=== PATIENT | male | born 1970 | race African-American/Black ===

== ENCOUNTER 2016-08-17 09:52 | Observation (INO) | payer MEDICAID ==
[2016-08-17 10:52] VITALS: BMI 25.4
[2016-08-17 11:04] LABS: AUTOMATED BASOPHIL 0.5 % (0-2); AUTOMATED EOSINOPHIL 0.6 % (0-5); AUTOMATED LYMPH 25.9 % (17-44); AUTOMATED MONOCYTE 8.2 % (3-10); AUTOMATED NEUTROPHIL 64.8 % (45-76); MPV 8.2 fL (7.4-10.4)
[2016-08-17 11:19] LABS: LEUKOCYTES/URINE NEG (NEGATIVE); NITRITE/URINE NEG (NEGATIVE); URINE OCCULT BLOOD NEG (NEG/TRACE)
[2016-08-17 11:20] LABS: ALL NEG? YES; MDMA* NEG (NEGATIVE); METHAMPHETAMINES NEG (NEGATIVE); OXYCODONE NEG (NEGATIVE)
[2016-08-17 11:34] LABS: BLOOD UREA NITROGEN 12 MG/DL (9-20); CALCIUM 9.3 MG/DL (8.4-10.2); CALCULATED OSMOLALITY 274 MOs/Kg (270-290); CHLORIDE 103 mEq/L (98-107); ETOH-MGDL < 10 mg/dL; GLUCOSE 72 MG/DL (70-99); SODIUM LEVEL 143 mEq/L (137-146); TOTAL PROTEIN 8.2 G/DL (6.3-8.2)
--- NOTE | 2016-08-17 11:47 | EDPRACDOC ---
- General Information Chief Complaint: Psychiatric Illness Stated Complaint: CONFUSED/ PSYCH EVAL Time Seen by Provider: 08/17/16 11:41 Information Source: Patient Allergies/Adverse Reactions: Allergies Allergy/AdvReac Type Severity Reaction Status Date / Time No Known Allergies Allergy Verified 08/17/16 10:49 - History of Present Illness Onset: 08/16/16 Exact Onset of Symptoms: Unknown HPI: Pt states he is not sure how he got here or what is going on. Pt states he can' t remember much. c/o sore throat, congestion, cough. Denies fever, headache, vision change, cp, sob, abd pain, n/v, changes in bowel or bladder, rash. Denies SI, HI. Pt states he hears voice but doesn't listen to them. Ex called. Pt hx schizoaffective disorder and has been of Haldol for 1 yr Symptoms began: Gradually Duration: Since Onset Symptoms Currently: Reports: Unchanged Altered Quality: Reports: Confusion Altered Severity: Reports: Mild, Moderate Recent Symptoms of: Reports: None Associated signs and symptoms: Denies: N, O, Chest pain, Headache, Seizure, Slurred speech, Weakness ED Past Medical History - History Reviewed Yes Nurses notes reviewed and agree except as marked - Patient Medical History Psychological History: Denies: Depression - Social Medical History Smoking Status: Heavy tobacco smoker (5 or more cigarettes/day or daily pipe/ cigar) ETOH: None Substance Abuse: None EDM Review of Systems - Review of Systems Constitutional: No Symptoms Reported. negative: Fever, Chills, Weakness, Fatigue, Loss of Appetite Eyes: No Symptoms Reported. negative: Redness, Blurred Vision, Double Vision, Discharge, Pain, Light Sensitive, Photophobia Ears: No Symptoms Reported. negative: Pain, Hearing Loss, Drainage, Ear Pulling Throat: Pain. negative: No Symptoms Reported, Swelling Nose: Congestion. negative: No Symptoms Reported, Abrasion, Bleeding, Discharge , Deformity, Ecchymosis, Injection, Laceration, Swelling, Tender Mouth: No Symptoms Reported. negative: Pain, Drooling Respiratory: Cough Cardiovascular: No Symptoms Reported. negative: Chest Pain, Palpitations, Syncope, Edema, Orthopnea, PND, Skin Mottling, Cyanosis Gastrointestinal: No Symptoms Reported. negative: Pain, Constipation, Nausea, Vomiting, Diarrhea, Melena, Formula Intolerance Genitourinary: No Symptoms Reported. negative: Dysuria, Hematuria, Frequency, Discharge, Bleeding, Testicular Pain, Neurological: Memory Changes. negative: No Symptoms Reported, Dizziness, Gait Difficulty, Headache, Numbness, Seizure, Speech Difficulty, Weakness Musculoskeletal: No Symptoms Reported. negative: Neck, Chestwall, Ribs, Back, Shoulder, Arm, Elbow, Forearm, Wrist, Hand, Pelvis, Hip, Femur, Knee, Leg, Ankle , Foot Integumentary: No Symptoms Reported. negative: Itching, Rash, Bruising, Wound Allergic/Immunologic: No Symptoms Reported. negative: Hives, Itching Hematologic: No Symptoms Reported. negative: Lymphadenopathy, Easy Bruising, Easy Bleeding Psychiatric: Hallucinations - Physical Exam Constitutional: Alert, Confused Oriented to: Person, Place Last recorded Vital Signs: Last Vital Signs Temp 98 F 08/17/16 10:52 Pulse 70 08/17/16 10:52 Resp 16 08/17/16 10:52 BP 128/59 L 08/17/16 10:52 Pulse Ox 100 08/17/16 10:52 Oxygen Pulse Oxygen Saturation 100 O2 Device Room Air Oxygen Flow Rate Fraction of Inspired Oxygen ( FIO2) - HEENT Head: Normal ( normocephalic) Eye Exam: Normal (PERRL, EOMI, Sclera white) Oropharynx: Red Tympanic Membrane: Normal ENT EAC: Normal TMJ: Normal Nose: No Symptoms Reported (septum midline) Neck: Normal (FROM, trachea at midline) - Respiratory/Cardiovascular Respiratory: Normal - CTA (BBS clear to auscultation without adventitious sounds ) Cardiovascular: Normal (RRR without murmur, gallop or rub) - GI Auscultation: Normal (NABS) Palpation: Normal (Soft,No rebound or guarding, non distended) Tenderness: Non tender - Musculoskeletal Back: Normal (Non-Tender) Extremities: Normal (Normal tone, Pulses 2+ No cyanosis or edema, FROM) - Integumentary Skin: Normal, Warm, Dry Lymphatics: Normal (no adenopathy) - Neurologic Memory Impaired: Short-term Motor Function: Normal (Normal tone, Pulses 2+ No cyanosis or edema, FROM) Cranial Nerve: Normal (CN II-X11 intact sensation, strength 5/5) Cerebellar: Normal Mood Description: Normal Thought: Coherent Perception: Normal - Differential Diagnosis Dehydration, Hypoglycemia, Closed Head Injury - Results 08/17/16 10:54 08/17/16 10:54 WBC 9.9 xk/uL (3.8-10.8) 08/17/16 10:54 RBC 5.38 xM/uL (4.70-6.10) 08/17/16 10:54 Hgb 14.7 g/dL (14.0-18.0) 08/17/16 10:54 Hct 45.2 % (42-52) 08/17/16 10:54 MCV 84 fL (80-94) 08/17/16 10:54 MCH 27.3 pg (27-32) 08/17/16 10:54 MCHC 32.5 g/dl (33-36) L 08/17/16 10:54 RDW 13.3 % (11.5-14.5) 08/17/16 10:54 Plt Count 175 xk/uL (130-400) 08/17/16 10:54 MPV 8.2 fL (7.4-10.4) 08/17/16 10:54 Neut % (Auto) 64.8 % (45-76) 08/17/16 10:54 Lymph % (Auto) 25.9 % (17-44) 08/17/16 10:54 Summers % (Auto) 8.2 % (3-10) 08/17/16 10:54 Eos % (Auto) 0.6 % (0-5) 08/17/16 10:54 Baso % (Auto) 0.5 % (0-2) 08/17/16 10:54 Absolute Neuts (auto) 6.34 xk/uL (1.7-8.2) 08/17/16 10:54 Absolute Lymphs (auto) 2.48 xk/uL (0.65-4.75) 08/17/16 10:54 Sodium 143 mEq/L (137-146) 08/17/16 10:54 Potassium 4.2 mEq/L (3.5-5.1) 08/17/16 10:54 Chloride 103 mEq/L (98-107) 08/17/16 10:54 Carbon Dioxide 23 mMOL/L (22-33) 08/17/16 10:54 Anion Gap 21 mEq/L (8-16) H 08/17/16 10:54 BUN 12 MG/DL (9-20) 08/17/16 10:54 Creatinine 0.70 MG/DL (0.66-1.25) 08/17/16 10:54 Estimated GFR (MDRD) > 60 mL/min (>=60) 08/17/16 10:54 Glucose 72 MG/DL (70-99) 08/17/16 10:54 Calculated Osmolality 274 MOs/Kg (270-290) 08/17/16 10:54 Calcium 9.3 MG/DL (8.4-10.2) 08/17/16 10:54 Total Bilirubin 0.8 MG/DL (0.2-1.3) 08/17/16 10:54 AST 39 IU/L (17-59) 08/17/16 10:54 ALT 30 IU/L (21-72) 08/17/16 10:54 Alkaline Phosphatase 59 IU/L (38-126) 08/17/16 10:54 Total Protein 8.2 G/DL (6.3-8.2) 08/17/16 10:54 Albumin 4.5 G/DL (3.5-5.0) 08/17/16 10:54 Urine Color Dark yellow 08/17/16 11:00 Urine Clarity Clear 08/17/16 11:00 Urine pH 6.0 (5.0-8.0) 08/17/16 11:00 Ur Specific [place] 1.030 (1.003-1.035) 08/17/16 11:00 Urine Protein 2+ (NEG/TRACE) H 08/17/16 11:00 Urine Glucose (UA) Neg (NEGATIVE) 08/17/16 11:00 Urine Ketones 2+ (NEGATIVE) H 08/17/16 11:00 Urine Occult Blood Neg (NEG/TRACE) 08/17/16 11:00 Urine Nitrite Neg (NEGATIVE) 08/17/16 11:00 Urine Bilirubin Neg (NEGATIVE) 08/17/16 11:00 Urine Urobilinogen <2.0 MG/DL (0-1) 08/17/16 11:00 Ur Leukocyte Esterase Neg (NEGATIVE) 08/17/16 11:00 Urine RBC 2-5 (0-2) H 08/17/16 11:00 Urine WBC 5-10 (0-2) H 08/17/16 11:00 Ur Epithelial Cells Occ 08/17/16 11:00 Urine Bacteria Few (NEG/FEW) 08/17/16 11:00 Urine Mucus Mod (NEG/OCC) H 08/17/16 11:00 Urine Sperm Few (NONE) H 08/17/16 11:00 Urine Opiates Screen Neg (NEGATIVE) 08/17/16 11:00 Ur Oxycodone Screen Neg (NEGATIVE) 08/17/16 11:00 Urine Methadone Screen Neg (NEGATIVE) 08/17/16 11:00 Ur Barbiturates Screen Neg (NEGATIVE) 08/17/16 11:00 Ur Tricyclics Screen Neg (NEGATIVE) 08/17/16 11:00 Ur Phencyclidine Scrn Neg (NEGATIVE) 08/17/16 11:00 Ur Amphetamines Screen Neg (NEGATIVE) 08/17/16 11:00 U Methamphetamines Scrn Neg (NEGATIVE) 08/17/16 11:00 Urine MDMA Screen Neg (NEGATIVE) 08/17/16 11:00 U Benzodiazepines Scrn Neg (NEGATIVE) 08/17/16 11:00 Urine Cocaine Screen Neg (NEGATIVE) 08/17/16 11:00 Ur THC Screen Neg (NEGATIVE) 08/17/16 11:00 Plasma/Serum Ethyl Alc % (<0.01) 08/17/16 10:54 Lab Results 08/17/16 08/17/16 08/17/16 11:00 11:00 10:54 WBC 9.9 RBC 5.38 Hgb 14.7 Hct 45.2 MCV 84 MCH 27.3 MCHC 32.5 L RDW 13.3 Plt Count 175 MPV 8.2 Neut % (Auto) 64.8 Lymph % (Auto) 25.9 Summers % (Auto) 8.2 Eos % (Auto) 0.6 Baso % (Auto) 0.5 Absolute Neuts (auto) 6.34 Absolute Lymphs (auto) 2.48 Sodium Potassium Chloride Carbon Dioxide Anion Gap BUN Creatinine Estimated GFR (MDRD) Glucose Calculated Osmolality Calcium Total Bilirubin AST ALT Alkaline Phosphatase Total Protein Albumin Urine Color Dark yellow Urine Clarity Clear Urine pH 6.0 Ur Specific [place] 1.030 Urine Protein 2+ H Urine Glucose (UA) Neg Urine Ketones 2+ H Urine Occult Blood Neg Urine Nitrite Neg Urine Bilirubin Neg Urine Urobilinogen <2.0 Ur Leukocyte Esterase Neg Urine RBC 2-5 H Urine WBC 5-10 H Ur Epithelial Cells Occ Urine Bacteria Few Urine Mucus Mod H Urine Sperm Few H Urine Opiates Screen Neg Ur Oxycodone Screen Neg Urine Methadone Screen Neg Ur Barbiturates Screen Neg Ur Tricyclics Screen Neg Ur Phencyclidine Scrn Neg Ur Amphetamines Screen Neg U Methamphetamines Scrn Neg Urine MDMA Screen Neg U Benzodiazepines Scrn Neg Urine Cocaine Screen Neg Ur THC Screen Neg Plasma/Serum Ethyl Alc 08/17/16 10:54 WBC RBC Hgb Hct MCV MCH MCHC RDW Plt Count MPV Neut % (Auto) Lymph % (Auto) Summers % (Auto) Eos % (Auto) Baso % (Auto) Absolute Neuts (auto) Absolute Lymphs (auto) Sodium 143 Potassium 4.2 Chloride 103 Carbon Dioxide 23 Anion Gap 21 H BUN 12 Creatinine 0.70 Estimated GFR (MDRD) > 60 Glucose 72 Calculated Osmolality 274 Calcium 9.3 Total Bilirubin 0.8 AST 39 ALT 30 Alkaline Phosphatase 59 Total Protein 8.2 Albumin 4.5 Urine Color Urine Clarity Urine pH Ur Specific [place] Urine Protein Urine Glucose (UA) Urine Ketones Urine Occult Blood Urine Nitrite Urine Bilirubin Urine Urobilinogen Ur Leukocyte Esterase Urine RBC Urine WBC Ur Epithelial Cells Urine Bacteria Urine Mucus Urine Sperm Urine Opiates Screen Ur Oxycodone Screen Urine Methadone Screen Ur Barbiturates Screen Ur Tricyclics Screen Ur Phencyclidine Scrn Ur Amphetamines Screen U Methamphetamines Scrn Urine MDMA Screen U Benzodiazepines Scrn Urine Cocaine Screen Ur THC Screen Plasma/Serum Ethyl Alc - EKG EKG #1 EKG Time: 12:05 Rate: bpm: 60 [place]: Normal Rhythm: NSR Block: None Hypertrophy: LVH ST: Nonsp - Diagnostic Imaging Head Image interpreted by: Radiologist IMPRESSION: 1. No evidence of acute intracranial abnormality. 2. Frontal scalp swelling. Chest Image interpreted by: Radiologist IMPRESSION: No active cardiopulmonary disease. - Departure Disposition: Admit to Condition: Stable Final Diagnosis: Acute psychosis Schizoaffective disorder Qualifiers: Schizoaffective disorder type: unspecified Qualified Code(s): F25.9 - Schizoaffective disorder, unspecified Education/Counseling Given To: Patient Education/Counseling Given Regarding: Diagnosis, Treatment - Physician Consulted Behavioral Health Time Called: 12:38 Consult Reason: mental health eval *ED Obs Orders - Orders Orders: 08/17/16 11:45 Record Obtain Old EKG Routine CT HEAD W/O CM [CT] Stat EKG - ED Only [CARDDIAG] STAT 08/17/16 11:54 DG CHEST 2V [RAD] Stat 08/17/16 12:32 RAPID STREP SCREEN [GLORIA] Stat 08/17/16 12:37 Vital Signs-Unit Routine Routine Acetaminophen Tablet [TYLENOL Tablet] 650 mg PO Q6H PRN Ibuprofen Tablet [Motrin] 400 mg PO Q6H PRN Lorazepam [Ativan] 1 mg PO Q6H PRN Zolpidem Tartrate [Ambien] 5 mg PO 2100,2200 PRN TU Observation Routine 08/17/16 13:00 Nicotine [Nicoderm] 21 mg TOP Q24H Statement: As supervising physician I agree with this plan as developed by the Allied Health Practitioner.
--- NOTE | 2016-08-17 12:24 | DIRPT ---
CLINICAL DATA: Confusion. Sore throat, congestion, and cough. EXAM: CHEST 2 VIEW COMPARISON: None. FINDINGS: The cardiomediastinal silhouette is within normal limits. The lungs are slightly hypoinflated and clear. There is no evidence of pleural effusion or pneumothorax. No acute osseous abnormality is identified. IMPRESSION: No active cardiopulmonary disease. Electronically Signed By: David Philip M.D. On: 08/17/2016 12:21
--- NOTE | 2016-08-17 12:29 | DIRPT ---
CLINICAL DATA: Confusion. Hearing voices. EXAM: CT HEAD WITHOUT CONTRAST TECHNIQUE: Contiguous axial images were obtained from the base of the skull through the vertex without intravenous contrast. COMPARISON: None. FINDINGS: There is no evidence of acute cortical infarct, intracranial hemorrhage, mass, midline shift, or extra-axial fluid collection. Ventricles and sulci are normal. Midline frontal scalp edema is noted. The visualized upper portions of the orbits are unremarkable. The visualized paranasal sinuses and mastoid air cells are clear. No skull fracture is identified. IMPRESSION: 1. No evidence of acute intracranial abnormality. 2. Frontal scalp swelling. Electronically Signed By: David Philip M.D. On: 08/17/2016 12:26
[2016-08-17] MEDS ORDERED: ACETAMINOPHEN 325 MG/TAB TABLET PO PRN (12:37)
[2016-08-17] MEDS ORDERED: ZOLPIDEM TARTRATE 5 MG TAB PO PRN (12:37)
[2016-08-17] MEDS ORDERED: LORAZEPAM 1 MG TAB PO PRN (12:37)
[2016-08-17] MEDS ORDERED: IBUPROFEN 400 MG TAB PO PRN (12:37)
[2016-08-17] MEDS ORDERED: NICOTINE 21 MG PATCH TOP SCH (13:00)
--- NOTE | 2016-08-17 16:31 | TUDEPART ---
Disposition: Psychiatric Facility ([facility]) Education/Counseling Given To: Patient Education/Counseling Given Regarding: Diagnosis, Treatment, Prognosis, Follow Up <Mateo Leblanc - Last Filed: 08/17/16 16:30> Discussion of OBS Stay: General: Pleasant male No acute distress. Neuro: Alert Oriented, calm and cooperative HEENT: Normocephalic atraumatic. Sclerae nonicteric. Extraocular movements intact. Oral mucosa pink and moist. Neck: Supple. Nontender. Good range of motion. No masses. Trachea is midline. No cervical adenopathy. Lungs: Clear to auscultation. No rhonchi or wheezing. Heart: Regular rate and rhythm. No murmur. Abdomen: Soft, nontender, nondistended. No hepatosplenomegaly. No abdominal wall defects or masses. No guarding or rebound. Extremities: no cyanosis clubbing or edema. No palpable deformities. Skin: Warm and dry, no rashes No changes in clinical status or new information from previous documentation. Vital Signs: Temp:98.7 F HR: 77 BP: 122/73 RR: 20 Pox: 98%. Continue with current plan. Yes I personally saw and evaluated the patient. <Cristóbal Gay - Last Filed: 08/17/16 19:09> Condition: Stable Follow-up / Referrals: None,No Provider [Family Provider] - One Week - Physical Exam Constitutional: Alert, Confused Oriented to: Person, Place Last recorded Vital Signs: Last Vital Signs Temp 98.6 F 08/17/16 13:21 Pulse 74 08/17/16 13:21 Resp 20 08/17/16 13:21 BP 122/73 08/17/16 13:21 Pulse Ox 98 08/17/16 13:21 Oxygen Pulse Oxygen Saturation 98 O2 Device Room Air Oxygen Flow Rate Fraction of Inspired Oxygen ( FIO2) - HEENT Head: Normal ( normocephalic) Eye Exam: Normal (PERRL, EOMI, Sclera white) Oropharynx: Red Tympanic Membrane: Normal ENT EAC: Normal TMJ: Normal Nose: No Symptoms Reported (septum midline) - Respiratory/Cardiovascular Respiratory: Normal - CTA (BBS clear to auscultation without adventitious sounds ) Cardiovascular: Normal (RRR without murmur, gallop or rub) - GI Auscultation: Normal (NABS) Palpation: Normal (Soft,No rebound or guarding, non distended) Tenderness: Non tender - Musculoskeletal Back: Normal (Non-Tender) Extremities: Normal (Normal tone, Pulses 2+ No cyanosis or edema, FROM) - Integumentary Skin: Normal, Warm, Dry Lymphatics: Normal (no adenopathy) - Neurologic Memory Impaired: Short-term Motor Function: Normal (Normal tone, Pulses 2+ No cyanosis or edema, FROM) Cranial Nerve: Normal (CN II-X11 intact sensation, strength 5/5) Cerebellar: Normal Mood Description: Normal Thought: Coherent Perception: Normal <Mateo Leblanc - Last Filed: 08/17/16 16:30> - Physical Exam Last recorded Vital Signs: Last Vital Signs Temp 98.7 F 08/17/16 19:02 Pulse 77 08/17/16 19:02 Resp 20 08/17/16 19:02 BP 132/62 08/17/16 19:02 Pulse Ox 98 08/17/16 19:02 Oxygen Pulse Oxygen Saturation 98 O2 Device Room Air Oxygen Flow Rate Fraction of Inspired Oxygen ( FIO2) <rCistóbal Gay - Last Filed: 08/17/16 19:09>
[2016-08-17 18:55] VITALS: BP 132/62; PULSE 77; TEMP 98.7
== END 2016-08-17 19:05 | disposition home or self-care (01) ==
LOC: EDMC 09:52 → TUOBSINP 12:37
PROVIDERS: ADMIT Emergency Medicine; ATTEND Emergency Medicine
DX: F23 Brief psychotic disorder (principal); F25.9 Schizoaffective disorder, unspecified; F17.210 Nicotine dependence, cigarettes, uncomplicated; R41.0 Disorientation, unspecified; Z79.899 Other long term (current) drug therapy
CPT/HCPCS: 36415; 70450; 71020; 80053; 80307; 80320; 81001; 85025; 86592; 87880; 93005; 99285; G0378; J3490